=== PATIENT | female | born 1985 | race Caucasian/White ===

== ENCOUNTER 2018-11-01 09:27 | Emergency (ER) | payer OTHER ==
[~2018-11-01] VITALS: Ht 162.6 cm; Wt 58.5 kg
[~2018-11-01 09:27] MED LIST: TOBREX5 ML OPHTHALMIC
[2018-11-01] MEDS ORDERED: XANAX 0.5 MG0.5 MG PO (09:36)
[2018-11-01] MEDS ORDERED: ROBAXIN 750 MG750 M1 PO (11:24)
[2018-11-01] MEDS ORDERED: ACETAMINOPHEN-1 EAC1 PO (11:24)
[2018-11-01] MEDS ORDERED: ZPAK PO (11:24)
[2018-11-01] MEDS ORDERED: NAPROSYN500 MG PO (11:24)
[2018-11-01 11:48] VITALS: BP 107/76
--- NOTE | 2018-11-01 14:40 | EKG ---
[place] [address] ELECTROCARDIOGRAM REPORT Name: BOBBYXANDERARIK Saloni Room: [facility]#: [id number] Admission: 11/01/18 Attend Phys: Discharge: 11/01/18 Date of : 85 Report #: [id number] THIS REPORT FOR: //name// [facility] ED Test Date: 2018-11-01 Test Time: 10:44:05 Pat Name: ARIK ROSALES Department: Room: Gender: F Crime Scene Technician: UNKNOWN : 1985 Requested By: Jagruti Scott Order Number: [id number] MD: Tayo Mendez Measurements Intervals [place] Rate: 66 P: 66 NC: 176 QRS: 59 QRSD: 98 T: 43 QT: 413 QTc: 433 Interpretive Statements Sinus rhythm No previous ECG available for comparison Electronically Signed On 11-01-2018 14:40:04 [facility] by Tayo Mendez [email or web address] <ELECTRONICALLY SIGNED> By: Tayo Mendez MD, [facility] 11/01/18 1440 1044 1044 Tayo Mendez MD, FACC /EPI
== END 2018-11-01 11:48 | disposition home or self-care (01) ==
LOC: M.ERS 09:27
DX: M94.0 Chondrocostal junction syndrome [Tietze] (principal); J20.9 Acute bronchitis, unspecified; Z77.22 Contact with and (suspected) exposure to environmental tobacco smoke (acute) (chronic); Z98.890 Other specified postprocedural states

== ENCOUNTER → 2019-09-05 | Outpatient (CLI) | payer OTHER ==
[~2019-09-05] MED LIST changes: +ACETAMINOPHEN-1 EAC1 PO; +NAPROSYN500 MG PO; +ROBAXIN 750 MG750 M1 PO; +XANAX 0.5 MG0.5 MG PO; +ZPAK PO
[2019-09-05 07:57] LABS: HEMATOCRIT 45.3 % (37.0-47.0); HEMOGLOBIN 15.3 gm/dL (12.0-15.0); MCH 28.4 pg (26.0-34.0); MCHC 33.8 g/dL (28.0-37.0); MCV 84.1 fL (80.0-100.0); MPV 8.1 fl. (7.2-11.1); RBC 5.39 mil/uL (4.20-5.00); RDW-CV 13.9 % (10.5-14.5); WBC 9.1 thou/uL (4.0-11.0)
[2019-09-05 08:53] LABS: ALBUMIN 3.6 g/dL (3.4-5.0); ALKALINE PHOSPHATASE 54 U/L (46-116); ANION GAP 8 mmol/L (7-16); BUN 7 mg/dL (7-18); CALCIUM 9.3 mg/dL (8.5-10.1); CHLORIDE 106 mmol/L (98-107); CHOLESTEROL 158 mg/dL (<200); CO2 28 mmol/L (21-32); CREATININE 0.8 mg/dL (0.6-1.3); GLUCOSE 94 mg/dL (70-99); HDL CHOLESTEROL 53 mg/dL (>40); LDL CHOLESTEROL 97 mg/dL (<100); POTASSIUM 4.2 mmol/L (3.5-5.1); SGOT 16 U/L (15-37); SGPT 20 U/L (30-65); SODIUM 142 mmol/L (136-145); TOTAL BILIRUBIN 0.5 mg/dL (<0.1-1.0); TOTAL PROTEIN 7.4 g/dL (6.4-8.2); TRIGLYCERIDE 41 mg/dL (<150); VLDL 8 mg/dL (<40)
[2019-09-05 08:57] LABS: SERUM ASSESSMENT Clear
== END ==
LOC: M.LAB 07:33
DX: F31.72 Bipolar disorder, in full remission, most recent episode hypomanic (principal)

== ENCOUNTER 2020-01-06 20:18 | Emergency (ER) | payer OTHER ==
[~2020-01-06] VITALS: Ht 160 cm; Wt 72.6 kg
[2020-01-06] MEDS ORDERED: ABILIFY10 MG PO (20:27)
[2020-01-06 20:54] LABS: URINE BILIRUBIN NEGATIVE (Negative); URINE BLOOD NEGATIVE (Negative); URINE CLARITY CLEAR; URINE COLOR YELLOW; URINE GLUCOSE-RANDOM NEGATIVE (Negative); URINE KETONES NEGATIVE (Negative); URINE LEUKOCYTES-REFLEX NEGATIVE (Negative); URINE NITRITE-REFLEX NEGATIVE (Negative); URINE PROTEIN NEGATIVE (Negative); URINE UROBILINOGEN 0.2 E.U./dl (0.2-1.0)
[2020-01-06 21:08] LABS: ABSOLUTE BASOPHILS 0.2 thou/uL (0.0-0.2); ABSOLUTE EOSINOPHILS 0.2 thou/uL (0.0-0.7); ABSOLUTE LYMPHOCYTES 3.3 thou/uL (0.8-5.3); ABSOLUTE NEUTROPHILS 9.8 thou/uL (1.6-8.1); BASOPHILS 1.4 %; EOSINOPHILS 1.2 %; HEMATOCRIT 43.5 % (37.0-47.0); HEMOGLOBIN 14.7 gm/dL (12.0-15.0); LYMPHOCYTES 22.7 %; MCH 27.9 pg (26.0-34.0); MCHC 33.7 g/dL (28.0-37.0); MCV 82.8 fL (80.0-100.0); MPV 8.3 fl. (7.2-11.1); NUCLEATED RBCS 0 /100WBC; PLATELET COUNT* 282 thou/uL (150-400); POLYS 67.7 %; RBC 5.25 mil/uL (4.20-5.00); RDW-CV 14.1 % (10.5-14.5); WBC 14.5 thou/uL (4.0-11.0)
[2020-01-06] MEDS ORDERED: TRAMADOL 50 MG50 MG PO (21:11)
[2020-01-06 21:17] LABS: CREATININE 0.8 mg/dL (0.6-1.3); POTASSIUM 3.6 mmol/L (3.5-5.1)
[2020-01-06 21:28] LABS: ALBUMIN 3.9 g/dL (3.4-5.0); TOTAL BILIRUBIN 0.2 mg/dL (<0.1-1.0)
[2020-01-06] MEDS ORDERED: CIPROFLOXACIN500 M1 PO (21:46)
[2020-01-06 21:56] VITALS: BP 167/50
== END 2020-01-06 21:57 | disposition home or self-care (01) ==
LOC: M.ERS 20:18
PROVIDERS: Family Medicine
DX: R10.9 Unspecified abdominal pain (principal); Z77.22 Contact with and (suspected) exposure to environmental tobacco smoke (acute) (chronic); Z90.89 Acquired absence of other organs; Z98.890 Other specified postprocedural states

== ENCOUNTER 2021-08-31 17:50 | Emergency (ER) | payer OTHER ==
[~2021-08-31] VITALS: Ht 160 cm; Wt 72.6 kg
[~2021-08-31 17:50] MED LIST changes: +ABILIFY10 MG PO; +CIPROFLOXACIN500 M1 PO; +TRAMADOL 50 MG50 MG PO
[2021-08-31] MEDS ORDERED: PROAIR HFA8.5 GM INH (18:33)
[2021-08-31 19:00] VITALS: BP 128/70
== END 2021-08-31 19:00 | disposition home or self-care (01) ==
LOC: M.ERS 17:50
DX: J06.9 Acute upper respiratory infection, unspecified (principal); Z20.822 Contact with and (suspected) exposure to COVID-19; R43.8 Other disturbances of smell and taste; F17.210 Nicotine dependence, cigarettes, uncomplicated; Z98.890 Other specified postprocedural states; Z98.51 Tubal ligation status

== ENCOUNTER 2021-11-23 16:54 | Emergency (ER) | payer OTHER ==
[~2021-11-23] VITALS: Ht 160 cm; Wt 72.6 kg
[~2021-11-23 16:54] MED LIST changes: +PROAIR HFA8.5 GM INH
[2021-11-23 18:16] LABS: INFLUENZA A ANTIGEN Negative (Negative); INFLUENZA B ANTIGEN Negative (Negative)
[2021-11-23 18:41] VITALS: BP 132/70
== END 2021-11-23 18:42 | disposition home or self-care (01) ==
LOC: M.ERS 16:54
PROVIDERS: Nurse Practitioner Family
DX: B34.9 Viral infection, unspecified (principal); Z20.822 Contact with and (suspected) exposure to COVID-19; R19.7 Diarrhea, unspecified; Z98.890 Other specified postprocedural states; Z98.51 Tubal ligation status; Z79.899 Other long term (current) drug therapy